=== PATIENT | male | born 1960 | race Two or more races ===

== ENCOUNTER 2021-12-06 16:15 | Inpatient (IN) | payer OTHER ==
[~2021-12-06] VITALS: Ht 172.7 cm; Wt 83.1 kg
[2021-12-06 17:49] LABS: Basophils # (auto) 0.1 10 ^3/uL (0-0.2); Basophils % (auto) 0.4 % (0.0-2.0); Eosinophils # (auto) 0 10 ^3/uL (0-0.8); Eosinophils % (auto) 0.2 % (0.0-7.0); Hematocrit 42.9 % (41.0-53.0); Hemoglobin 14.3 g/dL (13.5-17.5); Lymphocytes # (auto) 1.7 10 ^3/uL (0.4-5.4); Lymphocytes % (auto) 12.1 % (10.0-50.0); Mean Corpuscular Hemoglobin 28.2 pg (28.0-32.0); Mean Corpuscular Hgb Conc. 33.3 g/dL (32.0-36.0); Mean Corpuscular Volume 84.7 fL (80.0-100.0); Monocytes # (auto) 0.9 10 ^3/uL (0-1.3); Monocytes % (auto) 6.5 % (0.0-12.0); Neutrophils % (auto) 80.8 % (37.0-80.0); Red Blood Cells 5.06 10^6/uL (4.5-5.90); Red Cell Distribution Width 15.3 % (11.8-14.3); White Blood Cell 13.7 10^3/uL (4.4-10.8)
[2021-12-06] MEDS ORDERED: ASPirin 81 mg TAB PO ONE (18:00)
[2021-12-06 18:06] LABS: Albumin 3.5 g/dL (3.4-5.0); Calcium 9.3 mg/dL (8.5-10.1); Magnesium 1.5 mg/dL (1.6-2.6); Potassium 3.7 mmol/L (3.5-5.1)
[2021-12-06 18:10] LABS: BUN/Creatinine Ratio 14.3; Bilirubin, Total 0.9 mg/dL (0.2-1.0); Total Protein 7.6 g/dL (6.4-8.2)
[2021-12-06] MEDS ORDERED: ENOXAPARIN SOD 120 MG/0.8 ML SYRINGE SC ONE (21:00)
[2021-12-06] MEDS ORDERED: HYDROcodone-ACET 5/325MG TAB PO PRN (22:45)
[2021-12-06] MEDS ORDERED: DOCUSATE SOD 100 MG CAP PO PRN (22:45)
[2021-12-06] MEDS ORDERED: hydrALAZINE HCL 20 MG/ML VL IV PRN (22:45)
[2021-12-06] MEDS ORDERED: DEXTROSE (50%) 50ML SYRG IV PRN (22:45)
[2021-12-06] MEDS ORDERED: MORPHINE SULFATE INJ 2 MG/ml SYRG IV PRN ×2 (22:45→23:45)
[2021-12-06] MEDS: SODIUM CHLORIDE 0.9% 1,000 ML IV SCH (23:22)
[2021-12-06] MEDS ORDERED: QUEtiapine FUMARATE 25 MG TAB PO PRN (23:30)
[2021-12-06] MEDS ORDERED: NITROGLYCERIN 0.4 MG SL TAB SL PRN (23:45)
[2021-12-07] VITALS (20 sets, daily range): BP systolic 127–186; BP diastolic 75–109
[2021-12-07] MEDS ORDERED: cefTRIAXone 1GM/50ML D5W 50 ML IV ONE (03:15)
[2021-12-07] MEDS ORDERED: HEPARIN SODIUM (PORCINE) 5000 UNITS/ML 1ML VIAL SC SCH (06:00)
[2021-12-07 06:45] LABS: Calcium 8.8 mg/dL (8.5-10.1); Potassium 3.9 mmol/L (3.5-5.1)
[2021-12-07 06:48] LABS: BUN/Creatinine Ratio 15.6
[2021-12-07 06:49] LABS: Basophils # (auto) 0 10 ^3/uL (0-0.2); Basophils % (auto) 0.4 % (0.0-2.0); Eosinophils # (auto) 0.1 10 ^3/uL (0-0.8); Hematocrit 41.7 % (41.0-53.0); Hemoglobin 14.2 g/dL (13.5-17.5); Lymphocytes # (auto) 3.9 10 ^3/uL (0.4-5.4); Lymphocytes % (auto) 38.7 % (10.0-50.0); Mean Corpuscular Hemoglobin 28.5 pg (28.0-32.0); Mean Corpuscular Hgb Conc. 33.9 g/dL (32.0-36.0); Mean Corpuscular Volume 83.9 fL (80.0-100.0); Monocytes # (auto) 0.7 10 ^3/uL (0-1.3); Monocytes % (auto) 7.4 % (0.0-12.0); Neutrophils # (auto) 5.3 10 ^3/uL (1.6-8.6); Neutrophils % (auto) 52.5 % (37.0-80.0); Nucleated Red Blood Cells % 0.1 %; Red Blood Cells 4.97 10^6/uL (4.5-5.90); Red Cell Distribution Width 15.5 % (11.8-14.3); White Blood Cell 10.1 10^3/uL (4.4-10.8)
[2021-12-07 06:57] LABS: Albumin 3.1 g/dL (3.4-5.0); Bilirubin, Total 0.9 mg/dL (0.2-1.0); Total Protein 6.5 g/dL (6.4-8.2)
[2021-12-07] MEDS: InsuLIN REG 1unit/0.01ml Soln (100units/ml) SC SCH ×3 (07:00→17:00)
[2021-12-07] MEDS: ACCU-CHEK COMFORT CURVE STRIP VI SCH ×4 (07:12→22:00)
[2021-12-07 08:22] LABS: Urine WBC None Seen /hpf (0 - 3)
[2021-12-07 08:58] LABS: Urine Bacteria NONE SEEN /hpf (None Seen); Urine Blood Negative /uL (Negative); Urine Specific Gravity 1.014 (1.001-1.035)
[2021-12-07] MEDS ORDERED: HEPARIN DRIP/D5W 100UNITS/ML 250 ML IV SCH (09:00)
[2021-12-07] MEDS: cefTRIAXone 1GM/50ML D5W 50 ML IV SCH (09:05)
[2021-12-07 09:38] LABS: Basophils # (auto) 0.1 10 ^3/uL (0-0.2); Basophils % (auto) 0.8 % (0.0-2.0); Eosinophils # (auto) 0.1 10 ^3/uL (0-0.8); Eosinophils % (auto) 0.7 % (0.0-7.0); Hematocrit 42.7 % (41.0-53.0); Hemoglobin 14.5 g/dL (13.5-17.5); Lymphocytes # (auto) 2.9 10 ^3/uL (0.4-5.4); Lymphocytes % (auto) 32.7 % (10.0-50.0); Mean Corpuscular Hemoglobin 28.3 pg (28.0-32.0); Mean Corpuscular Hgb Conc. 33.9 g/dL (32.0-36.0); Mean Corpuscular Volume 83.5 fL (80.0-100.0); Monocytes # (auto) 0.6 10 ^3/uL (0-1.3); Monocytes % (auto) 6.4 % (0.0-12.0); Neutrophils # (auto) 5.2 10 ^3/uL (1.6-8.6); Neutrophils % (auto) 59.4 % (37.0-80.0); Nucleated Red Blood Cells % 0.3 %; Red Blood Cells 5.12 10^6/uL (4.5-5.90); Red Cell Distribution Width 15.4 % (11.8-14.3); White Blood Cell 8.9 10^3/uL (4.4-10.8)
[2021-12-07 09:54] LABS: INR 1.03 (0.9-1.15); Partial Thromboplastin Time 31.4 sec (24.6-33.4)
[2021-12-07] MEDS ORDERED: METOPROLOL TARTRATE 25 MG TAB PO SCH (10:00)
[2021-12-07] MEDS: FAMOTIDINE (10MG/ML) 2ML VL IV SCH ×2 (10:30→23:16)
[2021-12-07] MEDS: LISINOPRIL 10 MG TAB PO SCH (10:31)
[2021-12-07] MEDS: ASPirin 81 mg TAB PO SCH (10:34)
[2021-12-07 10:35] LABS: Alcohol, Urine < 3.0 mg/dL (0-10); Amphetamine Screen, Urine NEGATIVE (NEGATIVE); Barbiturate Scree,Urine NEGATIVE (NEGATIVE); Benzodiazephine Screen, Urine NEGATIVE (NEGATIVE); Cocaine Screen, Urine NEGATIVE (NEGATIVE); Opiate Scree,Urine NEGATIVE (NEGATIVE); Phencyclidine Screen, Urine NEGATIVE (NEGATIVE)
[2021-12-07 10:44] LABS: Cannabinoid Screen, Urine POSITIVE (NEGATIVE)
[2021-12-07] MEDS ORDERED: ANGIOMAX 250 MG VIAL IV ONE ×2 (11:33→12:58)
[2021-12-07] MEDS ORDERED: MIDAZOLAM HCL 2MG/2ML 2ml VIAL (1mg/ml) ONE (11:34)
[2021-12-07] MEDS ORDERED: fentaNYL CITRATE 100 MCG/2 ML VL ONE (11:34)
[2021-12-07] MEDS ORDERED: SODIUM CHL 0.9% 50 ML ONE ×2 (11:34→12:59)
[2021-12-07] MEDS ORDERED: IOHEXOL 350 MG/ML 100ML IJ ONE (11:35)
[2021-12-07] MEDS ORDERED: ONDANSETRON HCL 4 MG/2 ML VIAL ONE ×2 (12:05→13:35)
[2021-12-07 12:14] LABS: Cholesterol 178 mg/dL (< 200)
[2021-12-07 12:16] LABS: HDL Cholesterol 30 mg/dL (40-59); LDL Cholesterol 110 mg/dL (< 100); Triglycerides 310 mg/dL (< 150)
[2021-12-07] MEDS ORDERED: ATROPINE SULF 1 MG/10ml SYR ONE (13:30)
[2021-12-07] MEDS ORDERED: EPINEPHrine HCL 1 MG/10 ML SYRG ONE (13:30)
[2021-12-07] MEDS ORDERED: niCARdipine 25 MG/10 ML VIAL IV ONE (13:48)
[2021-12-07] MEDS ORDERED: IODIXANOL 320MG/ML 100ML BTL IV ONE (13:51)
[2021-12-07] MEDS ORDERED: METOCLOPRAMIDE HCL 5MG/ml INJ 2ml VIAL ONE (13:58)
[2021-12-07] MEDS: SODIUM CHLORIDE 0.9% 1,000 ML IV SCH (15:25)
[2021-12-07] MEDS ORDERED: LABETALOL HCL 5 MG/ML 4ML SYRINGE IV PRN (16:45)
[2021-12-07] MEDS ORDERED: METOPROLOL TARTRATE 50 MG TAB PO ONE (16:45)
[2021-12-07] MEDS: ONDANSETRON HCL 4 MG/2 ML VIAL IV PRN (16:58)
[2021-12-07 17:08] LABS: INR 1.46 (0.9-1.15)
[2021-12-07 17:12] LABS: Partial Thromboplastin Time 75.1 sec (24.6-33.4)
[2021-12-07] MEDS ORDERED: METOPROLOL TARTRATE 50 MG TAB PO SCH (22:00)
[2021-12-07] MEDS ORDERED: ATORVASTATIN 20 MG TAB PO SCH (22:00)
[2021-12-07] MEDS ORDERED: InsuLIN REG 1unit/0.01ml Soln (100units/ml) SC SCH (22:00)
[2021-12-07 22:59] LABS: INR 1.02 (0.9-1.15); Partial Thromboplastin Time 39.3 sec (24.6-33.4)
[2021-12-07] MEDS: METOPROLOL TARTRATE 25 MG TAB PO SCH (23:15)
[2021-12-08] VITALS (18 sets, daily range): BP systolic 116–166; BP diastolic 41–102
[2021-12-08 05:01] LABS: Basophils # (auto) 0 10 ^3/uL (0-0.2); Basophils % (auto) 0.3 % (0.0-2.0); Eosinophils # (auto) 0 10 ^3/uL (0-0.8); Eosinophils % (auto) 0.2 % (0.0-7.0); Hematocrit 41.1 % (41.0-53.0); Hemoglobin 14.1 g/dL (13.5-17.5); Lymphocytes # (auto) 3.4 10 ^3/uL (0.4-5.4); Lymphocytes % (auto) 34.3 % (10.0-50.0); Mean Corpuscular Hemoglobin 28.8 pg (28.0-32.0); Mean Corpuscular Hgb Conc. 34.3 g/dL (32.0-36.0); Mean Corpuscular Volume 83.8 fL (80.0-100.0); Monocytes # (auto) 0.8 10 ^3/uL (0-1.3); Monocytes % (auto) 8.5 % (0.0-12.0); Neutrophils # (auto) 5.6 10 ^3/uL (1.6-8.6); Neutrophils % (auto) 56.7 % (37.0-80.0); Nucleated Red Blood Cells % 0.1 %; Red Blood Cells 4.91 10^6/uL (4.5-5.90); Red Cell Distribution Width 15.4 % (11.8-14.3); White Blood Cell 9.9 10^3/uL (4.4-10.8)
[2021-12-08 05:05] LABS: BUN/Creatinine Ratio 17.3; Calcium 8.8 mg/dL (8.5-10.1); Potassium 3.8 mmol/L (3.5-5.1)
[2021-12-08 05:07] LABS: INR 0.97 (0.9-1.15); Partial Thromboplastin Time 34.4 sec (24.6-33.4)
[2021-12-08] MEDS ORDERED: HEPARIN SODIUM (PORCINE) 5000 UNITS/ML 1ML VIAL IV ONE ×2 (05:20→05:30)
[2021-12-08] MEDS: METOPROLOL TARTRATE 25 MG TAB PO SCH ×3 (06:02→20:56)
[2021-12-08] MEDS: ACCU-CHEK COMFORT CURVE STRIP VI SCH ×3 (07:00→17:00)
[2021-12-08] MEDS: InsuLIN REG 1unit/0.01ml Soln (100units/ml) SC SCH ×3 (07:00→17:00)
[2021-12-08] MEDS: SODIUM CHLORIDE 0.9% 1,000 ML IV SCH (08:05)
[2021-12-08] MEDS: cefTRIAXone 1GM/50ML D5W 50 ML IV SCH (08:26)
[2021-12-08] MEDS: LISINOPRIL 10 MG TAB PO SCH (09:41)
[2021-12-08] MEDS: FAMOTIDINE (10MG/ML) 2ML VL IV SCH (09:41)
[2021-12-08] MEDS: ASPirin 81 mg TAB PO SCH (09:42)
[2021-12-08] MEDS: ACETAMINOPHEN 325 MG TAB PO PRN ×2 (09:57→20:56)
[2021-12-08] MEDS ORDERED: CLOPIDOGREL BISULFATE 75 MG TAB PO SCH (10:00)
[2021-12-08 10:33] LABS: Free T3 3.63 pg/mL (2.3-4.2); Free T4 (Free Thyroxine) 1.33 ng/dL (0.89-1.76)
[2021-12-08] MEDS ORDERED: ASPI1CHW5 PO (11:53)
[2021-12-08] MEDS ORDERED: ATOR80TA PO (11:53)
[2021-12-08] MEDS ORDERED: DICL1GEL72 EX (11:53)
[2021-12-08] MEDS ORDERED: DULO60CA PO (11:53)
[2021-12-08] MEDS ORDERED: FOLI1TAB6 PO (11:55)
[2021-12-08] MEDS ORDERED: HYDR-4902 PO (11:55)
[2021-12-08] MEDS ORDERED: LISI-716 PO (12:02)
[2021-12-08] MEDS ORDERED: INSU1INJ3 SC (12:02)
[2021-12-08] MEDS ORDERED: METF-370 PO ×2 (12:02)
[2021-12-08] MEDS ORDERED: IBUP800T27 PO (12:02)
[2021-12-08] MEDS ORDERED: METH2.5T PO (12:09)
[2021-12-08] MEDS ORDERED: NITR0.4S29 SL (12:09)
[2021-12-08] MEDS ORDERED: OME20T PO (12:09)
[2021-12-08] MEDS ORDERED: METO25TA93 PO (12:09)
[2021-12-08 14:00] LABS: INR 1.02 (0.9-1.15); Partial Thromboplastin Time 44.4 sec (24.6-33.4)
[2021-12-08] MEDS ORDERED: HEPARIN DRIP/D5W 100UNITS/ML 250 ML IV SCH (14:15)
[2021-12-08] MEDS ORDERED: CLOPIDOGREL 300 MG TAB PO ONE (16:30)
[2021-12-08] MEDS ORDERED: MAGNESIUM SULFATE 1GM/100ML 100 ML IV ONE (16:45)
[2021-12-08] MEDS ORDERED: amLODIPine BESYLATE 5 MG TAB PO ONE (16:45)
[2021-12-08] MEDS ORDERED: LORazepam 2MG/ML-1ML VIAL ONE (17:28)
[2021-12-08] MEDS ORDERED: LORazepam 2MG/ML-1ML VIAL IV PRN (17:30)
[2021-12-08] MEDS: ONDANSETRON HCL 4 MG/2 ML VIAL IV PRN ×2 (17:36→20:56)
[2021-12-08] MEDS ORDERED: ATORVASTATIN 20 MG TAB PO SCH (22:00)
[2021-12-09] MEDS ORDERED: LISINOPRIL 10 MG TAB PO SCH (10:00)
[2021-12-09] MEDS ORDERED: amLODIPine BESYLATE 5 MG TAB PO SCH (10:00)
== END 2021-12-08 20:58 | disposition short-term general hospital (02) | DRG 250 ==
LOC: EDBD 16:15 → ER 16:18 → EDBD 16:18 → TELE 23:45 → DOU IN ICU 12-07 15:31
PROVIDERS: ADMIT Nurse Practitioner Family; ATTEND Internal Medicine
PROC: 02703ZZ Dilation of Coronary Artery, One Artery, Percutaneous Approach (ICD-10-PCS; principal; 2021-12-07)
PROC: 02703ZZ Dilation of Coronary Artery, One Artery, Percutaneous Approach (ICD-10-PCS; 2021-12-07)
PROC: 4A023N7 Measurement of Cardiac Sampling and Pressure, Left Heart, Percutaneous Approach (ICD-10-PCS; 2021-12-07)
PROC: B2111ZZ Fluoroscopy of Multiple Coronary Arteries using Low Osmolar Contrast (ICD-10-PCS; 2021-12-07)
DX: I21.4 Non-ST elevation (NSTEMI) myocardial infarction (principal); I49.01 Ventricular fibrillation; I24.9 Acute ischemic heart disease, unspecified; E03.9 Hypothyroidism, unspecified; D72.829 Elevated white blood cell count, unspecified; Z20.822 Contact with and (suspected) exposure to COVID-19; E11.9 Type 2 diabetes mellitus without complications; E66.9 Obesity, unspecified; E78.5 Hyperlipidemia, unspecified; E83.42 Hypomagnesemia; I11.9 Hypertensive heart disease without heart failure; I25.10 Atherosclerotic heart disease of native coronary artery without angina pectoris; Z79.84 Long term (current) use of oral hypoglycemic drugs; Z68.27 Body mass index [BMI] 27.0-27.9, adult; Z95.5 Presence of coronary angioplasty implant and graft; Z82.49 Family history of ischemic heart disease and other diseases of the circulatory system
CPT/HCPCS: 36415; 71045; 80048; 80053; 80061; 80307; 81001; 82962; 83036; 83735; 83880; 84439; 84443; 84481; 84484; 85025; 85610; 85730; 87081; 92920; 93005; 93306; 93458; 96365; 96372; 99152; 99153; 99291; C1874; G0378; J0696; J2250; J2405; J3490; Q9967